=== PATIENT | female | born 1995 | race Caucasian/White ===

== ENCOUNTER → 2018-07-01 15:47 | Outpatient (CLI) | payer OTHER, SELFPAY ==
[2018-07-09 16:24] LABS: HPV APTIMA, High Risk Positive (Negative); HPV Reflexed? YES, CHARGE PATIENT
== END ==
PROVIDERS: Referring Provider Nurse Practitioner Women's Health; Visit Provider Nurse Practitioner Women's Health
DX: Z12.4 Encounter for screening for malignant neoplasm of cervix (principal)
CPT/HCPCS: 87624; 88175; G0145

== ENCOUNTER → 2019-10-05 12:43 | Outpatient (CLI) | payer OTHER, SELFPAY ==
[2019-10-05 12:01] VITALS: BMI 36.8
[2019-10-05 14:06] LABS: Thyroid Stim Hormone (TSH) 1.44 uIU/mL (0.358-3.74)
[2019-10-05 22:42] LABS: Chlamydia Trachomatis by PCR Negative (Negative); Neisserai gonorrhoeae by PCR Negative (Negative); Probe Check PASS; Sample Adequacy Control PASS; Specimen Processing Control PASS
[2019-10-09 10:37] LABS: HPV Reflexed? NOT INDICATED
== END ==
PROVIDERS: PCP Family Medicine; Referring Provider Nurse Practitioner Women's Health; Visit Provider Nurse Practitioner Women's Health
DX: Z12.4 Encounter for screening for malignant neoplasm of cervix (principal); A64 Unspecified sexually transmitted disease
CPT/HCPCS: 36415; 84443; 87491; 87591; 88175; G0145

== ENCOUNTER 2023-06-23 17:10 | Inpatient (IN) | payer OTHER, SELFPAY ==
[2023-06-23] VITALS (73 sets, daily range): BP systolic 120–196; BP diastolic 63–103; PULSE 63–129; RESP 14–100; TEMP 36.4–37.1; O2SAT 74–100; BMI 46.5
[2023-06-23 19:20] LABS: Basophil# 0.03 X10^3/uL; Basophil% 0.2 % (0-1); Eosinophil# 0.29 X10^3/uL; Hematocrit 35.5 % (37-47); Hemoglobin 11.3 g/dL (12.0-15.0); Lymphocyte % 16.3 % (19-41); Mean Corp Hgb Conc 31.8 g/dL (32-36); Mean Corpuscular Hgb 26.6 pg (27.0-32.0); Mean Corpuscular Volume 83.5 fL (81-99); Mean Platelet Vol. 10.6 fl (6.2-12.0); Monocyte# 0.86 X10^3/uL; Monocyte% 5.9 % (0-10); NRBC Flagged by Analyzer 0 % (0-5); Neutrophil # 11.03 X10^3/uL (2.7-7.7); Neutrophil % 75.1 % (47-70); Platelet Count 338 K/mm3 (150-450); RBC Distribution Width CV 15.2 % (11.6-14.6); Red Blood Count 4.25 M/mm3 (4.2-5.4); White Blood Count 14.7 K/mm3 (4.4-11.0)
--- NOTE | 2023-06-23 19:21 | PCM.HP.OB ---
HPI - General General Date of Admission: 06/23/23 Date of Service: 06/23/23 HPI Narrative VONNIE PRESTON, is a 27 F who presents for induction. Maternal Data Information Final LUZMA: 07/14/23 Gestational age: 37 weeks [facility] Medical History (Updated 06/23/23 @ 19:[address] Kathleen Lorenz MD) Headache Infertility Polyhydramnios Home Medications aspirin 81 mg tablet,delayed release 162 mg PO DAILY preventative 06/23/23 [History Last Taken 06/23/23 08:00 162 mg] ferrous sulfate 325 mg (65 mg iron) tablet (Feosol) 325 mg PO QODAY anemia 06/23/23 [History Last Taken 06/22/23 08:00 325 mg] vit no.95-ferrous fumarate 28 mg-folic acid 800 mcg tablet () 1 tab PO DAILY 06/23/23 [History Last Taken 06/23/23 08:00 1 TAB] Allergy/AdvReac Type Severity Reaction Status Date / Time iodine Allergy Rash Verified 06/23/23 17:55 povidone-iodine Allergy Rash Verified 06/23/23 17:55 [From Betadine] chlorahexidine Allergy Severe Other Uncoded 06/23/23 17:55 Family History no significant family his Surgical History History of surgery Social History Smoking Status: Never smoker History Elective abortions Hx Para 0 Spontaneous abortions Hx # Term Pregnancies Ectopic pregnancies Hx # Pregnancies Multiple births # of living children NST FHR Rate Baby A Baseline: 135 Variability:: Moderate Accelerations:: 15 x 15 Decelerations:: None Uterine Activity:: quiet Vital Signs Vital Signs Vital Signs: 06/23/23 17:46 06/23/23 17:46 06/23/23 18:00 Temperature Pulse Rate 89 Blood Pressure 152/97 H 151/92 H BP Systolic 152 151 BP Diastolic 97 92 06/23/23 18:00 06/23/23 17:46 06/23/23 18:15 Temperature 98.7 F Pulse Rate 90 Blood Pressure 153/98 H BP Systolic 153 BP Diastolic 98 06/23/23 18:15 06/23/23 18:33 06/23/23 18:33 Temperature Pulse Rate 83 75 Blood Pressure 135/94 H BP Systolic 135 BP Diastolic 94 06/23/23 18:45 06/23/23 18:45 Temperature Pulse Rate 86 Blood Pressure 155/103 H BP Systolic 155 BP Diastolic 103 Weight Weight: 263 lb Body Mass Index (BMI) 46.5 Physical Exam Const alert, oriented x3 and no apparent distress Chest inspection of chest normal GI soft to palpation, non-tender and non-distended Inspection: gravid external exam normal Neuro moves all extremities Labs Labs Labs: Blood Type Pending Antibody Screen Pending Hct 35.5 % (37-47) L Hgb 11.3 g/dL (12.0-15.0) L see [facility] H&P Assessment & Plan (1) Severe pre-eclampsia affecting childbirth: COMMENT: @ 37 weeks (2) Polyhydramnios: QUALIFIERS: Trimester: third trimester Fetus number: single or unspecified fetus Qualified Code(s): O40.3XX0 - Polyhydramnios, third trimester, not applicable or unspecified PLAN: Plan Admit to L&D Severe preE - based on severe range BP & persistent headache. Will start hypertensive protocol with labetalol. Also start magnesium. Induction - intracervical pat placed. Will start pitocin. GBS positive - pcn per protocol when in active labor Pain - epidural as desired EFW - less than 4500g, patient with adequate pelvis
[2023-06-23] MEDS: 0.9% Normal Saline Single 100 ML IV.SOLN. INTRA-UTER (19:25)
[2023-06-23 19:35] LABS: Protein, Urine (Random) 8.5 mg/dL (<11.9); Protein:Creat Ratio 242 mg/g CRE (0-200)
[2023-06-23 19:42] LABS: AST(SGOT) 11 U/L (15-37); Alanine Aminotransfer ALT/SGPT 17 U/L (13-56); Creatinine, Serum 0.42 mg/dL (0.55-1.02); EST Glomerular Filtration Rate 187 mL/min (>60); Est Glom Filt Rate - Afr Amer 226 mL/min (>60); Estimated Creatinine Clearance 163.49 ml/min
[2023-06-23] MEDS: Magnesium Sulfate 4gm/100mL 4 GM/100 ML IV.SOLN. IV (19:45)
[2023-06-23] MEDS: Labetalol (Prefilled) 20 MG/4 ML IV ×2 (19:48→20:43)
[2023-06-23] MEDS: Lactated Ringers 1,000 ML 15 ML IV (19:55)
[2023-06-23] MEDS: Magnesium Sulfate 20 GM/500 ML BAG IV (20:10)
[2023-06-23] MEDS: Labetalol 100 MG Tablet PO (20:22)
[2023-06-23] MEDS: 0.9% Saline Lock 10 ML Syringe IV (20:43)
[2023-06-23 21:07] LABS: Syphilis Antibodies Non-reactive
[2023-06-23] MEDS: Penicillin G Pot 5,000,000 UNITS in 0.9% Normal Saline (100mL MB+) 100 ML 150 UNITS IV (23:16)
[2023-06-23] MEDS: Oxytocin 15 Units/NS 250ml 15 UNITS/250 ML IV.SOLN 2 UNITS IV (23:55)
[2023-06-24] VITALS (87 sets, daily range): BP systolic 69–144; BP diastolic 29–93; PULSE 70–97; RESP 14–19; TEMP 36–37.4; O2SAT 83–100
[2023-06-24] MEDS: Penicillin G 3,000,000 Units 50 ML 100 UNITS IV ×3 (03:09→10:56)
[2023-06-24] MEDS: Acetaminophen 500 MG Tablet PO (05:11)
[2023-06-24] MEDS: Magnesium Sulfate 20 GM/500 ML BAG IV ×2 (05:38→14:27)
[2023-06-24] MEDS: Labetalol 100 MG Tablet PO (08:12)
--- NOTE | 2023-06-24 08:56 | PCM.PN.BLA ---
Progress Note Patient seen at bedside. Starting to feel contractions. Still having mild headache. Assessment & Plan Assessment/Plan (1) Severe pre-eclampsia affecting childbirth: (2) Polyhydramnios: QUALIFIERS: Fetus number: single or unspecified fetus Trimester: third trimester Qualified Code(s): O40.3XX0 - Polyhydramnios, third trimester, not applicable or unspecified (3) 37 weeks gestation of : PLAN: Plan CE 3.5/60/-3 AROM for large amount of clear fluid IUPC and FSE placed without difficulty Continue present plan of care Epidural when indicated Dr. Cooney updated and will be assuming management.
[2023-06-24] MEDS: fentaNYL-bupivacaine (epidural) 100 ML BAG EPIDURAL (11:48)
[2023-06-24] MEDS: DiphenhydrAMINE 50 MG/ML Syringe IV (12:07)
[2023-06-24] MEDS: Cefazolin 2 GM in 0.9% Normal Saline (100mL Bag) 100 ML IV (12:11)
[2023-06-24] MEDS: Carboprost Tromethamine 250 MCG/ML Ampul IM (12:19)
--- NOTE | 2023-06-24 12:19 | PLAC_PTH ---
PATIENT: VONNIE PRESTON LOC: [facility] U#:[id number] AGE/SX: 27/F ROOM: [facility] RE06/23/[address]: Dr. Mallorie Ta, MDDOB: 1995 BED: 1 DIS: 06/27/2023 SPEC #: [id number] RECD: 06/25/23 08:42 STATUS: STORMY GUANAKITO #: [id number] MEGAN: 06/24/23 12:[address]: Mallorie Ta DEPT: SURGICAL PATHOLOGY RECD BY: Lesia Chin ENTERED: 06/25/23 08:42 SP TYPE: PLACENTA OTHR DR: Dr. Ahsan Newman MD Tissues: Placenta, NOS Procedures: Surgery Specimen Level V HEADER OPERATION: Primary section PRE-OP DIAGNOSIS: Labor TISSUE SUBMITTED: Placenta MICROSCOPIC DIAGNOSIS Bowser placenta (332 gm): Umbilical cord - trivascular with no inflammation. Placental membranes - mild acute decidual inflammation. Placental disc - Laurent-Malcolm change, mildly increased intraparenchymal fibrin plaques and intervillous congestion. AM:chetan 06/26/2023 MICROSCOPIC DESCRIPTION Slides are reviewed. GROSS DESCRIPTION SPECIMEN: PLACENTA / CLINICAL INFORMATION: A. Weight: 2.595 kg B. Gestational Age: 37 weeks C. Sex: Male PLACENTAL WEIGHT (POST FIXATION): 332 gm PLACENTAL DIMENSIONS: 17.0 x 13.0 x 3.0 cm and focally disrupted PLACENTAL SHAPE: Usual ovoid PLACENTAL WEIGHT FOR GESTATIONAL AGE: Within 10-99th percentile MEMBRANES - Present A. Insertion: Marginal B. Site of rupture from edge: At edge of placental disc C. Color of membrane: Josue-borrego D. Abnormalities: None UMBILICAL CORD - Present A. Color: Josue-borrego B. Insertion: Eccentric C. Length: 46.0 cm D. Diameter: 1.2 cm E. Number of vessels: Three F. Abnormalities: None PLACENTAL DISC - Present A. Color of surface: Josue-borrego B. surface abnormalities: None C. Maternal cotyledons: Intact with minimal tears D. Attached retro placental clot: No clot E. Cut surface: Dark red and spongy F. Lesions: None G. Separate clot: 10.0 x 5.0 x 2.0 cm SECTIONS SUBMITTED: 1. Umbilical cord ( end notched) 2. Umbilical cord, placental end 3. Membrane roll 4. Placental disc, and maternal surfaces 5. Placental disc, and maternal surfaces 6. Placental disc, and maternal surfaces AM:chetan 06/25/2023 TC:2 CPT: 36934
[2023-06-24] MEDS: Azithromycin 500 MG in Dextrose 5%-Water (250mL Bag) 250 ML 250 MG IV (12:38)
--- NOTE | 2023-06-24 12:46 | CASEMGMT ---
Labor and Delivery Social Work Sw responded to JIMMIE on this date. Sw stayed until surgery began and father of baby (EMERALD- Avinash) was taken back to be with MOB. - Sw provided education on what to expect throughout JIMMIE for FOB. Sw provided support. - Sw will follow up with parents due to social work consult received. - No immediate needs or concerns at this time. Keaton Rasmussen, TAILOR HELPER, CREW MANAGER
--- NOTE | 2023-06-24 12:48 | EX.PCM.OBRPT ---
Details Operative Information Date of Procedure: 06/24/23 Pre-Operative Diagnosis: non reassuring status, FHR cat 3, 37 weeks gestation, preeclampsia with severe features, Obesity in , Maternal Hypotension Post-Operative Diagnosis: same, live male Indications for : Distress Indications Narrative: Received epidural anesthesia after epidural blood pressure revealed maternal hypertension heart rate prolonged deceleration to approximately the 50s for approximately 4 min- JIMMIE called by Nursing. pt taken to OR given ephedrine- Upon my arrival FHR 100s-140s. Prior to this deceleration FHR has been at times FHR category with variable and late decelerations, times of minimal variability. Discussion with patient regarding Continued labor vs Primary cs - pt wishes to proceed with primary cs. pt remote from delivery 3cm. Classification: OUMAR Procedure Type: low transverse explosives worker #1: Nusrat Camara Type of Anesthesia: Epidural Special Medications: Salty Antibiotic Given: Ancef 2 grams IV x1 and Zithromax 500 mg/5 mL X1 Drain: Cabezas to straight drain Estimated Blood Loss: 700 Fluids Replaced: 700 Procedure Start Time: 12:09 Procedure Stop Time: 12:42 Time of Delivery: 12:13 Findings Description of Procedure: Was In OR upon my arrival. She was then placed in the supine position. She was prepped and draped in the normal sterile fashion. Anesthesia was found to be adequate. At this time a Pfannenstiel skin incision was made with a knife was carried down to the underlying layer of the fascia. The fascial incision was then extended laterally using curved Webster scissor. Tensions was then turned to the superior aspect of the fascial edge was grasped with 2 straight Fiona clamps tented up and the rectus muscle dissected off sharply using curved Webster scissor. Rectus muscles were then in the midline bluntly and peritoneum was entered bluntly. Gentle opposing traction was placed. At this time the vesicouterine peritoneum was identified. Scalpel was used to make a uterine incision in a low transverse fashion. The uterus was then entered bluntly gentle opposing traction was placed to extend this incision. Membranes were ruptured clear. Infant's head was brought to the uterine incision was delivered atraumatically. Cord was clamped and cut was handed to the waiting nursery team. The Placenta was removed from the uterus. The uterus was then removed from the abdominal cavity. The uterus was cleared of all clots and debris using a lap. At this time the uterine incision was reapproximated using #1 Vicryl in a running locked fashion. Uterine atony appreciated- hemabate IM given to lower uterine segment. Hemostasis was appreciated. Posterior cul-de-sac was then cleared of all clots and debris. Uterus was placed back in the abdominal cavity. Gutters were cleared of all clots and debris. Uterine incision was reevaluated and noted to be of excellent hemostasis. Salty placed. At this time the peritoneum was grasped with Kellys reapproximated using #2 Vicryl suture in a running fashion. Salty placed over rectus muscle. Fascia was then reapproximated using #1 PDS in a running fashion. Subcu layer was irrigated, bovie used to coagulated any oozing and then salty placed, reapproximated with #2 0 plain gut suture in an interrupted fashion. Subcu layer was closed using 4-0 Monocryl in a subcu fashion. Dry sterile dressing was applied. Instrument lap needle count correct ?2. Anticipated normal postoperative course. Presentation: Positive for Vertex Amniotic Membrane Rupture Type: Artificial Amniotic Fluid Description: Clear Placental Delivery Description: Expressed Placenta Disposition: Routine to Lab Cord Vessel Description: 3 Vessels Cord Entanglement: None A Gender: Male (1 minute): 8 (5 minute): 10 Delayed Cord Clamping: Yes Complications Risks of Surgery Discussed w/Patient: Bleeding, Anesthesia Risks, Infection and Injury to surrounding structure(s) including bowel and bladder Complications: none
[2023-06-24] MEDS: Oxytocin 15 Units/NS 250ml 15 UNITS/250 ML IV.SOLN 83 UNITS IV (13:12)
[2023-06-24] MEDS: Ketorolac 30 MG/ML Syringe IV ×2 (13:52→20:03)
[2023-06-24] MEDS: 0.9% Saline Lock 10 ML Syringe IV (13:52)
[2023-06-24] MEDS: Acetaminophen 500 MG Tablet 1000 MG PO ×2 (14:00→20:03)
[2023-06-24 14:25] LABS: Pathology Specimen OB SEE PATHOLOGY REPORT
[2023-06-25] VITALS (23 sets, daily range): BP systolic 83–145; BP diastolic 47–79; PULSE 72–97; RESP 16–18; TEMP 36.1–37.2; O2SAT 95–99
[2023-06-25] MEDS: Magnesium Sulfate 20 GM/500 ML BAG IV ×2 (00:59→11:40)
[2023-06-25] MEDS: Acetaminophen 500 MG Tablet 1000 MG PO ×4 (01:50→20:44)
[2023-06-25] MEDS: Enoxaparin 40 MG/0.4 ML Syringe SC ×2 (01:50→15:11)
[2023-06-25] MEDS: Ketorolac 30 MG/ML Syringe IV ×2 (01:50→08:34)
[2023-06-25 05:24] LABS: Hematocrit 25.7 % (37-47); Mean Corp Hgb Conc 31.1 g/dL (32-36); Mean Corpuscular Hgb 26.8 pg (27.0-32.0); Mean Platelet Vol. 10.2 fl (6.2-12.0); Platelet Count 245 K/mm3 (150-450); RBC Distribution Width CV 15.9 % (11.6-14.6); RBC Distribution Width SD 49.9 fl (35.1-43.9); Red Blood Count 2.99 M/mm3 (4.2-5.4); White Blood Count 16.1 K/mm3 (4.4-11.0)
--- NOTE | 2023-06-25 09:39 | PN.OBGYN_ITS ---
Subjective Subjective Pain well controlled. Average lochia. Denies nausea or vomiting. Denies headache or visual changes. Denies lightheadedness, chest pain or shortness of breath Objective Data Objective Data Vital Signs: Vital Signs Temp Pulse Resp BP Pulse Ox O2 Del Method 97.0 F L 80 18 118/61 95 Room Air 06/25/23 08:37 06/25/23 08:38 06/25/23 08:37 06/25/23 08:38 06/25/23 08:38 06/25/23 08:37 Oxygen Delivery Method Room Air Weight: 119.295 kg Body Mass Index (BMI) 46.5 Intake & Output: Intake and Output for Last 24 Hours 06/23/23 06/24/23 06/25/23 23:59 23:59 23:59 Intake Total 475 / 475 3208.67 / 3308.67 1250 / 1250 Output Total 200 / 200 3400 / 3400 675 / 675 Balance 275 / 275 -191.33 / -91.33 575 / 575 Lab / Micro Data 06/25/23 05:18 06/23/23 18:40 Labs: Laboratory Results - last 24 hr 06/25/23 05:18: WBC 16.1 H, RBC 2.99 L, Hgb 8.0 L, Hct 25.7 L, MCV 86.0, MCH 26.8 L, MCHC 31.1 L, RDW Std Deviation 49.9 H, RDW Coeff of Xavi 15.9 H, Plt Count 245, MPV 10.2 Physical Exam Narrative Extremities 2+ edema, 1+ DTR's and no clonus. Symmetrical without erythema Const alert General Appearance: cooperative GI GI Narrative: soft, moderate distention, fundus firm, appropriately tender. Abdominal bandage clean dry and intact Assessment & Plan (1) deliv NOS-unsp: PLAN: Po operative day #1 status post primary section for persistent category 2 heart tones remote from delivery. Patient is doing well. is in special care nursery for blood sugar monitoring and regulation. P atient is on magnesium. We will stop after 24 hours. Blood pressures have been well controlled. No antihypertensives for now but likely will need to restart these later and reviewed this with patient. Moderate acute blood loss anemia. Likely partially dilutional as well. Recheck CBC at noon. Recheck tomorrow. Continue routine postoperative care.
[2023-06-25] MEDS: Influenza Virus Vac Quad 23-24 60 MCG/0.5 ML SYRINGE IM (10:56)
[2023-06-25] MEDS: Senna/Docusate Sodium 1 Tablet PO (10:57)
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
[2023-06-25 12:52] LABS: Hematocrit 26.9 % (37-47); Hemoglobin 8.5 g/dL (12.0-15.0); Mean Corp Hgb Conc 31.6 g/dL (32-36); Mean Corpuscular Hgb 27.2 pg (27.0-32.0); Mean Corpuscular Volume 85.9 fL (81-99); Mean Platelet Vol. 10.4 fl (6.2-12.0); Platelet Count 249 K/mm3 (150-450); RBC Distribution Width CV 15.9 % (11.6-14.6); RBC Distribution Width SD 49.4 fl (35.1-43.9); Red Blood Count 3.13 M/mm3 (4.2-5.4); White Blood Count 14.3 K/mm3 (4.4-11.0)
[2023-06-25] MEDS: Ibuprofen 600 MG Tablet PO ×2 (15:10→20:45)
[2023-06-26 00:58] VITALS: BP 111/51; PULSE 76; RESP 16; TEMP 36.6; O2SAT 97
[2023-06-26] MEDS: Enoxaparin 40 MG/0.4 ML Syringe SC ×2 (02:20→14:32)
[2023-06-26] MEDS: Acetaminophen 500 MG Tablet 1000 MG PO ×4 (02:20→20:55)
[2023-06-26] MEDS: Ibuprofen 600 MG Tablet PO ×4 (02:20→20:55)
[2023-06-26 06:01] LABS: Hematocrit 27.4 % (37-47); Hemoglobin 8.5 g/dL (12.0-15.0); Mean Corpuscular Hgb 26.9 pg (27.0-32.0); Mean Corpuscular Volume 86.7 fL (81-99); Platelet Count 233 K/mm3 (150-450); RBC Distribution Width CV 16.1 % (11.6-14.6); RBC Distribution Width SD 51.2 fl (35.1-43.9); Red Blood Count 3.16 M/mm3 (4.2-5.4); White Blood Count 12.4 K/mm3 (4.4-11.0)
[2023-06-26 08:20] VITALS: BP 145/79; PULSE 88; RESP 18; TEMP 36.9; O2SAT 97
--- NOTE | 2023-06-26 08:21 | PCM.PN.OB ---
Subjective Subjective Patient denies any head ache or visual changes. Tolerating regular diet. Ambulating without difficulty. Average lochia. Has had a bowel movement. Objective Data Objective Data Vital Signs: Vital Signs Temp Pulse Resp BP Pulse Ox O2 Del Method 97.8 F 76 16 111/51 L 97 Room Air 06/26/23 00:58 06/26/23 00:58 06/26/23 00:58 06/26/23 00:58 06/26/23 00:58 06/26/23 00:58 Oxygen Delivery Method Room Air Weight: 119.295 kg Body Mass Index (BMI) 46.5 Intake & Output: Intake and Output for Last 24 Hours 06/24/23 06/25/23 06/26/23 23:59 23:59 23:59 Intake Total 3208.67 / 3308.67 2080.83 / 2080.83 Output Total 3400 / 3400 975 / 975 Balance -191.33 / -91.33 1105.83 / 1105.83 Lab / Micro Data 06/26/23 05:55 06/23/23 18:40 Labs: Laboratory Results - last 24 hr 06/25/23 12:35: WBC 14.3 H, RBC 3.13 L, Hgb 8.5 L, Hct 26.9 L, MCV 85.9, MCH 27.2, MCHC 31.6 L, RDW Std Deviation 49.4 H, RDW Coeff of Xavi 15.9 H, Plt Count 249, MPV 10.4 06/26/23 05:55: WBC 12.4 H, RBC 3.16 L, Hgb 8.5 L, Hct 27.4 L, MCV 86.7, MCH 26.9 L, MCHC 31.0 L, RDW Std Deviation 51.2 H, RDW Coeff of Xavi 16.1 H, Plt Count 233, MPV 10.0 Physical Exam Narrative 1+ DTRs, 2+ edema, no clonus Const alert General Appearance: cooperative GI GI Narrative: soft, moderate distention, fundus firm, appropriately tender. Abdominal bandage clean dry and intact Assessment & Plan (1) deliv NOS-unsp: PLAN: Postoperative day #2 status post primary section. Patient with severe preeclampsia at delivery. Blood pressures are stable now. Continue to monitor. is in special care nursery and doing well. Likely discharge home tomorrow.
[2023-06-26] MEDS: Labetalol 100 MG Tablet PO (08:31)
[2023-06-26] MEDS: Ferrous Sulfate 325 MG Tablet PO (08:32)
[2023-06-26] MEDS: Senna/Docusate Sodium 1 Tablet PO (08:33)
[2023-06-26 12:40] VITALS: BP 145/85; PULSE 92; RESP 16; TEMP 36.6; O2SAT 97
[2023-06-26 16:00] VITALS: BP 155/85; PULSE 89; RESP 18; TEMP 36.5; O2SAT 96
[2023-06-26] MEDS: Labetalol 200 MG Tablet PO ×2 (17:25→23:29)
[2023-06-26 21:58] VITALS: BP 148/83; PULSE 85; RESP 16; TEMP 37; O2SAT 98
[2023-06-27 02:27] VITALS: BP 121/66; PULSE 82; RESP 16; TEMP 36.6; O2SAT 96
[2023-06-27] MEDS: Ibuprofen 600 MG Tablet PO ×2 (02:29→08:19)
[2023-06-27] MEDS: Acetaminophen 500 MG Tablet 1000 MG PO ×2 (02:29→08:19)
[2023-06-27] MEDS: Enoxaparin 40 MG/0.4 ML Syringe SC (02:29)
[2023-06-27] MEDS: Labetalol 200 MG Tablet PO (05:49)
[2023-06-27 08:22] VITALS: BP 134/81; PULSE 92; RESP 16; TEMP 36.3; O2SAT 96
--- NOTE | 2023-06-27 09:33 | PCM.PN.OB ---
Subjective Subjective Pain well controlled. Average lochia. No nausea or vomiting. Tolerating regular diet and ambulating without difficulty. Denies any headache or visual changes. No shortness of breath, chest pain or palpitations. Denies any lightheadedness or dizziness Objective Data Objective Data Vital Signs: Vital Signs Temp Pulse Resp BP Pulse Ox O2 Del Method 97.3 F L 92 16 134/81 H 96 Room Air 06/27/23 08:22 06/27/23 08:22 06/27/23 08:22 06/27/23 08:22 06/27/23 08:22 06/27/23 08:22 Oxygen Delivery Method Room Air Weight: 119.295 kg Body Mass Index (BMI) 46.5 Intake & Output: Intake and Output for Last 24 Hours 06/25/23 06/26/23 06/27/23 23:59 23:59 23:59 Intake Total 2080.83 / 2080.83 Output Total 975 / 975 Balance 1105.83 / 1105.83 Lab / Micro Data 06/26/23 05:55 06/23/23 18:40 Physical Exam Const alert General Appearance: cooperative GI GI Narrative: soft, moderate distention, fundus firm, appropriately tender. Abdominal bandage clean dry and intact Assessment & Plan (1) deliv NOS-unsp: PLAN: Postoperative day #3 status post primary section. Severe preeclampsia, blood pressures are stable on labetalol. Discharged home on labetalol. Follow-up in the office in 2 to 3 days or as needed. Monitor blood pressures at home. Patient is comfortable this plan Mild acute blood loss anemia. Blood loss for the surgery and after is consistent with 1600 cc from calculations. This consistent with maternal hemorrhage. Patient is tolerating this well. Discharge home on oral iron.
--- NOTE | 2023-06-27 09:39 | DS.PCM_ITS ---
Providers Date of Admission: 06/23/23 Primary Care Physician: Dr. Ahsan Newman MD Reason For Visit: PRIMARY Diagnosis Discharge Diagnosis (1) deliv NOS-unsp: Status: Acute Plan: Postoperative day #3 status post primary section. Severe preeclampsia, blood pressures are stable on labetalol. Discharged home on labetalol. Follow- up in the office in 2 to 3 days or as needed. Monitor blood pressures at home. Patient is comfortable this plan Mild acute blood loss anemia. Blood loss for the surgery and after is cons istent with 1600 cc from calculations. This consistent with maternal hemorrhage. Patient is tolerating this well. Discharge home on oral iron. Medications at Discharge Home Medications ferrous sulfate 325 mg (65 mg iron) tablet (Feosol) 325 mg PO QODAY anemia 06/23/23 vit no.95-ferrous fumarate 28 mg-folic acid 800 mcg tablet () 1 tab PO DAILY 06/23/23 ibuprofen 600 mg tablet 600 mg PO Q6H PRN Pain 20 days #60 TABLETS 06/27/23 labetalol 200 mg tablet 200 mg PO TID 30 days #90 tabs 06/27/23 Hospital Course Operations - (primary LTCS on 06/24/23) Summary of Care Provided Minutes Spent on Discharge: 17 Hospital Course: 27-year-old [place] parous female admitted on 06/24/2023 for induction of labor due to elevated blood pressures. Blood pressures then became in the severe range and she was diagnosed with preeclampsia with severe features and started on magnesium. On 06/24/2023 she was 3 cm dilated, and had a prolonged deceleration and some persistent category 2 heart tracing. As delivery was remote Dr. Cooney discussed with the patient options for delivery. Patient elected to go with primary section as recommended at that point . This was performed without difficulty. She did have an estimated EBL of 1600 cc consistent with hemorrhage. However she cannot tolerate the anemia well. By postoperative day #3 her blood pressures were well controlled on labetalol. Her pain was well controlled. She was sent home with routine instructions and prescriptions and the was doing well. Weight / BMI Weight Weight: 119.295 kg Body Mass Index (BMI) 46.5 ABG / Lab / Microbiology Data 06/26/23 05:55 06/23/23 18:40 D/C Instructions Discharge Diet: No restrictions May resume sexual activity in: 4-6 weeks Lifting Restrictions: 20 pounds Additional Activity Instructions: Nothing in the vagina for 4-6 weeks. You may return to work/school in 6 weeks. Call your doctor if your incision/area has: Continuous Slow Oozing, Sudden Increased Bleeding, Increased Pain/ Swelling, Increased Redness and Foul Smelling Discharge Call your doctor if you observe: Fever of 101 or Higher and Using more than 1 pad per hour (for 2 hours) Suture Line Care: Avoid Pulling/Pushing and Avoid Pinching/Bending Cleanse incision/area with: Keep Dressing Clean & Dry Please Follow Up With: Sri Tang MD When: Send a [employer] message or call the office at [phone] for nonurgent issues. Follow-up in 2 to 3 days or as needed. Meaningful Use Info Meaningful Use Diagnoses (Choose all that apply): None applicable Discharge Plan Admission Admit Date/Time: 06/23/23 17:10 Primary [facility] Your [facility] Attending Provider: Mallorie Ta Primary Care Provider: Ahsan Newman Discharge Orders/Prescriptions Prescriptions: New ibuprofen [ibuprofen] 600 MG tablet 600 mg PO Q6H PRN (Reason: Pain) 20 Days Qty: 60 1RF labetalol 200 mg tablet 200 mg PO TID 30 Days Qty: 90 0RF Continued ferrous sulfate [Feosol] 325 mg (65 mg iron) tablet 325 mg PO QODAY PNV cmb#95-ferrous fumarate-FA [] 28 mg iron- 800 mcg tablet 1 tab PO DAILY Discontinued aspirin 81 mg tablet,delayed release (DR/EC) 162 mg PO DAILY Patient Comments: TAKE 2 TABLETS BY MOUTH ONCE DAILY Referrals / Follow Up: Ahsan Newman MD [Primary Care Provider] - Disposition Disposition (needs filled in before D/C Order can be placed): Home, Self Care
[2023-06-27] MEDS: Influenza Virus Vac Quad 23-24 60 MCG/0.5 ML SYRINGE IM (11:16)
[2023-06-27] MEDS: Senna/Docusate Sodium 1 Tablet PO (11:17)
== END 2023-06-27 12:30 | disposition home or self-care (01) | DRG 787 ==
PROVIDERS: Obstetrics & Gynecology; Admitting Provider Obstetrics & Gynecology; PCP Family Medicine; Visit Provider Obstetrics & Gynecology
DX: O76 Abnormality in fetal heart rate and rhythm complicating labor and delivery (principal); D62 Acute posthemorrhagic anemia; O98.82 Other maternal infectious and parasitic diseases complicating childbirth; O14.14 Severe pre-eclampsia complicating childbirth; E66.8 Other obesity; O40.3XX0 Polyhydramnios, third trimester, not applicable or unspecified; O26.53 Maternal hypotension syndrome, third trimester; O99.214 Obesity complicating childbirth; Z79.82 Long term (current) use of aspirin; Z3A.37 37 weeks gestation of pregnancy; Z37.0 Single live birth; O90.81 Anemia of the puerperium; B95.1 Streptococcus, group B, as the cause of diseases classified elsewhere
CPT/HCPCS: 36415; 59025; 59050; 82565; 82570; 84156; 84450; 84460; 84550; 85025; 85027; 86780; 86850; 86900; 86901; 88307; 99221; J7120; 90686; A4216; G0378; J2405